=== PATIENT | female | born 1940 | race Caucasian/White ===

== ENCOUNTER 2017-12-31 01:32 | Observation (INO) | payer MEDICARE ==
[2017-12-31] MEDS ORDERED: ASPIRIN 81 MG TABLET, CHEWABLE PO ONE (02:50)
[2017-12-31 03:38] LABS: ABSOLUTE BASOPHILS # (AUTO) 0.1 10^3/uL (0.0-0.2); ABSOLUTE EOSINOPHILS # (AUTO) 0.3 10^3/uL (0.0-0.6); ABSOLUTE LYMPHOCYTES (AUTO) 1.2 10^3/uL (0.5-4.7); ABSOLUTE MONOCYTES (AUTO) 0.8 10^3/uL (0.1-1.4); ABSOLUTE NEUT (AUTO) 5.3 10^3/uL (1.7-8.2); BASOPHILS % (AUTO) 0.9 % (0-2); EOSINOPHILS % (AUTO) 3.7 % (0-6); HEMATOCRIT 42.4 % (36.0-47.0); HEMOGLOBIN 14.3 g/dL (12.0-15.5); LYMPHOCYTES % (AUTO) 15.8 % (13-45); MEAN CORPUSCULAR HEMOGLOBIN 32.6 pg (27.0-33.4); MEAN CORPUSCULAR HGB CONC 33.8 g/dL (32.0-36.0); MEAN CORPUSCULAR VOLUME 96 fl (80-97); MONOCYTES % (AUTO) 10.1 % (3-13); PLATELET COUNT 218 10^3/uL (150-450); RED CELL DISTRIBUTION WIDTH 13.2 % (11.5-14.0); SEGMENTED NEUTROPHILS % (AUTO) 69.5 % (42-78); TOTAL CELLS COUNTED % (AUTO) 100 %; WHITE BLOOD COUNT 7.6 10^3/uL (4.0-10.5)
[2017-12-31] MEDS ORDERED: NITROGLYCERIN 2% OINTMENT 1 GM PACKET TP ONE (03:38)
[2017-12-31 03:43] LABS: ALANINE AMINOTRANSFERASE 44 U/L (9-52); ALKALINE PHOSPHATASE 93 U/L (38-126); ANION GAP 10 (5-19); ASPARTATE AMINO TRANSFERASE 43 U/L (14-36); BILIRUBIN,DIRECT 0.2 mg/dL (0.0-0.4); BILIRUBIN,TOTAL 0.2 mg/dL (0.2-1.3); BLOOD UREA NITROGEN 35 mg/dL (7-20); CALCIUM 9.3 mg/dL (8.4-10.2); CARBON DIOXIDE 28 mmol/L (22-30); CHLORIDE 106 mmol/L (98-107); CREATINE KINASE 204 U/L (30-135); GLUCOSE 104 mg/dL (75-110); POTASSIUM 4.8 mmol/L (3.6-5.0); SODIUM 143.5 mmol/L (137-145); TOTAL PROTEIN 6.7 g/dL (6.3-8.2)
[2017-12-31 04:01] LABS: CREATINE KINASE MB 3.51 ng/mL (<4.55); TROPONIN I < 0.012 ng/mL
--- NOTE | 2017-12-31 04:39 | RADIOLOGY REPORT (SQ) ---
EXAM DESCRIPTION: XR CHEST 1 VIEW COMPLETED DATE/TME: 12/31/2017 02:50 CLINICAL HISTORY: cp COMPARISON: 02/27/2014 FINDINGS: Single frontal view of the chest. The cardiomediastinal silhouette has normal size and contour. No consolidation, pneumothorax, or pleural effusion. No displaced rib fractures identified. Leads overlie the chest. Upper abdominal soft tissues are unremarkable. IMPRESSION: 1. No acute pulmonary process identified.
[2017-12-31] MEDS ORDERED: METOCLOPRAMIDE HCL INJ/PF 10 MG/2 ML SDV IV PRN (05:30)
[2017-12-31] MEDS ORDERED: ACETAMINOPHEN 650 MG SUPP.RECT PR PRN (05:30)
--- NOTE | 2017-12-31 05:53 | PDOC H&P ---
History of Present Illness Admission Date/PCP: 12/31/2017 SERGO OVALLE MD Patient complains of: Chest pain History of Present Illness: RAMÓN PIERSON is a 77 year old female who woke up after midnight complaining of chest pressures in the suprasternal and right thoracic area, nonradiating, up to 8/10 in intensity, not associated with diaphoresis, nausea, vomiting, shortness of breath, dizziness, palpitations. Patient has history of coronary arterial disease with 6 stents placed in the past and tells me that this pain was similar to the ones she had at that time. She took one nitroglycerin at home and symptoms partially improved. She has had similar chest pressures on and off occasionally but nothing like this. She has normal exertional tolerance , denies lower extremities edema. 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 Mojica. In the emergency department she was found with new onset atrial fibrillation with a heart rate 115 which spontaneously converted to sinus rhythm. Also tells me that she has been a slightly short of breath when she do any activity for the last few weeks which is different to her baseline. Denies fever, chills, urinary symptoms, diarrhea or constipation. Her last stress test was 2 years ago. First set of troponins negative. Past Medical History Cardiac Medical History: Reports: Coronary Artery Disease - 6 [place] [facility] [place] [place] last stent on March [address] Mojica, Hyperlipidema, Hypertension Denies: Myocardial Infarction Pulmonary Medical History: Denies: Asthma, Bronchitis, Chronic Obstructive Pulmonary Disease (COPD), Pneumonia Neurological Medical History: Denies: Seizures GI Medical History: Reports: Hiatal Hernia Denies: Hepatitis Musculoskeltal Medical History: Reports: Arthritis Hematology: Denies: Anemia, Sickle Cell Disease Past Surgical History Past Surgical History: Reports: Appendectomy, Cardiac Catheterization - Several with a total of 6 stents placed, Cholecystectomy, Hysterectomy, Orthopedic Surgery - L ACL Bilateral carpal tunnel with ligament transfer on the right wrist, Tonsillectomy Denies: Amputation, Mastectomy, Pacemaker Social History Smoking Status: Former Smoker - Quit in 1971, used to smoke 2 packs per day Frequency of Alcohol Use: Occasional Hx Recreational Drug Use: No Family History Family History: Parents with history of myocardial infarction, uncle with history of myocardial infarction. Mother of leukemia and father of lung cancer. Parental Family History Reviewed: Yes - As above Children Family History Reviewed: NA Sibling(s) Family History Reviewed.: NA Medication/Allergy Home Medications: Benzonatate [Tessalon Perle 100 mg Capsule] 100 mg PO ASDIR PRN 11/26/14 Calcium Carbonate [Calcium] 200 unit PO DAILY 11/26/14 Cholecalciferol (Vitamin D3) [Vitamin D] 50,000 unit PO .QWEEKLY 11/26/14 Pravastatin Sodium 40 mg PO QHS 11/26/14 Ramipril [Altace] 5 mg PO DAILY 11/26/14 Vit C/E/Zn/Coppr/Lutein/Zeaxan [Preservision Areds 2 Softgel] 1 each PO BID 12/04 Aspirin [Aspirin 81 mg Chewable Tablet] 1 tab PO DAILY 12/24/14 Cyclosporine [Restasis Droperette] 1 each OU DAILY 05/29/15 Magnesium [Magnesium Gluconate] 250 mg PO DAILY 05/29/15 Metoprolol Tartrate [Lopressor] 50 mg PO DAILY 05/29/15 Ubidecarenone/Vitamin E Mixed [Coq10 Sg 100 Softgel] 1 each PO DAILY 05/29/15 Allergies/Adverse Reactions: codeine [Codeine] Allergy (Mild, Verified 12/31/17 03:43) Nausea propoxyphene [Propoxyphene] Allergy (Unknown, Verified 12/31/17 03:43) Hallucinations Review of Systems Review of Systems: As outlined in the HPI, all others negative Physical Exam Vital Signs: Temp Pulse Resp BP Pulse Ox 98.0 F 114 H 17 110/58 L 98 12/31/17 01:54 12/31/17 01:54 12/31/17 04:00 12/31/17 02:40 12/31/17 04:00 Intake & Output 12/29/17 12/30/17 12/31/17 06:59 06:59 06:59 Weight 76.4 kg Additional comments: General appearance: Well-developed, well-nourished, alert and cooperative, and appears to be in no acute distress Head: Normocephalic Eyes: PEERL, EOMI, vision is grossly intact. Ears: External auditory canal and tympanic membranes clear, hearing grossly intact. Nose: No nasal discharge. Throat: Oral cavity and pharynx normal. No inflammation, swelling, exudate or lesions. Neck: Neck supple, nontender without lymphadenopathy, masses or thyromegaly. Cardiac: Normal S1 and S2. No S3, S4 or murmurs. Rhythm is regular. There is no peripheral edema, cyanosis or pallor. Extremities are warm and well perfused. Capillary refill is less than 2 seconds. No carotid bruits. Lungs: Clear to auscultation and percussion without rales, rhonchi, wheezing or diminished breath sounds. Not using accessory muscles. Thorax: No tenderness to palpation Abdomen: Positive bowel sounds. Soft. Nondistended, nontender. No guarding or rebound. No masses. No hepatosplenomegaly Extremities: No significant deformity or joint abnormality. No edema. Peripheral pulses intact. No varicosities. Neurological: Cranial nerves II through XII grossly intact. Strength and sensation symmetric and intact throughout. Reflexes 2+ throughout. Skin: Skin normal color, texture and turgor with no lesions or eruptions, warm and dry. Psychiatric: The mental examination revealed the patient was oriented to person , place, and time. The patient was able to demonstrate good judgment on recent , without hallucinations, abnormal affect or abnormal behaviors. Results Laboratory Results: 12/31/17 02:50 12/31/17 02:50 12/31/17 12/31/17 02:50 02:50 WBC 7.6 RBC 4.40 Hgb 14.3 Hct 42.4 MCV 96 MCH 32.6 MCHC 33.8 RDW 13.2 Plt Count 218 Seg Neutrophils % 69.5 Lymphocytes % 15.8 Monocytes % 10.1 Eosinophils % 3.7 Basophils % 0.9 Absolute Neutrophils 5.3 Absolute Lymphocytes 1.2 Absolute Monocytes 0.8 Absolute Eosinophils 0.3 Absolute Basophils 0.1 Sodium 143.5 Potassium 4.8 Chloride 106 Carbon Dioxide 28 Anion Gap 10 BUN 35 H Creatinine 1.04 Est GFR ( Amer) > 60 Est GFR (Non-Af Amer) 51 L Glucose 104 Calcium 9.3 Total Bilirubin 0.2 AST 43 H ALT 44 Alkaline Phosphatase 93 Total Protein 6.7 Albumin 4.0 12/31/17 12/31/17 02:50 02:50 Creatine Kinase 204 H CK-MB (CK-2) 3.51 Troponin I < 0.012 Impressions: Chest X-Ray 12/31/17 02:50 IMPRESSION: 1. No acute pulmonary process identified. Assessment & Plan - Diagnosis (1) Chest pain Qualifiers: Chest pain type: unspecified Qualified Code(s): R07.9 - Chest pain, unspecified Is this a current diagnosis for this admission?: Yes Plan: Patient with history of coronary arterial disease and 6 stents placed in the past comes with chest pressure, similar to when she had had a stents placed. Last stress test 2 years ago. By the time I went to see her she was chest pain- free that apparently improved after one sublingual nitroglycerin. We will give the patient under telemetry monitoring, place an order for a stress test. Sublingual nitroglycerin as needed. Complete cardiac markers 3. Oxygen protocol if necessary. (2) New onset atrial fibrillation Is this a current diagnosis for this admission?: Yes Plan: Patient came with new onset atrial fibrillation, heart rate 115, he spontaneously returned to sinus rhythm. TSH sent. Patient asymptomatic. Unclear if these events are the one given her chest pressures on and off. I am placing cardiology consultation with Dr. Brito for evaluation and further recommendations, we appreciate your expertise. No further intervention done. (3) Coronary artery disease Qualifiers: Associated angina: without angina Is this a current diagnosis for this admission?: Yes Plan: Had 6 stents placed at [facility] by Dr. Mojica, last March 2012. For a stress test. Continue home medications. (4) Hypertension Qualifiers: Hypertension type: unspecified Qualified Code(s): I10 - Essential (primary ) hypertension Is this a current diagnosis for this admission?: Yes Plan: Blood pressure well controlled, continue with home antihypertensive medications - Time Time Spent: 30 to 50 Minutes
--- NOTE | 2017-12-31 06:23 | ER Document Report ---
ED General - General Chief Complaint: Chest Pain Stated Complaint: CHEST PAIN Time Seen by Provider: 12/31/17 02:49 TRAVEL OUTSIDE OF THE [place] IN LAST 30 DAYS: No - HPI Patient complains to provider of: Chest pain Notes: Patient here for evaluation of chest pain. Patient states chest pain started in the middle the night working her up from her sleep that was relieved by her own nitro. Patient states she has a history of 6 stents with the last one being placed in 2005. Patient also states last stress test was approximately 1- 2 years ago. Patient otherwise states no nausea no vomiting no fevers no chills no recent trauma. Patient resting comfortably upon my evaluation states substernal chest pain now at approximately 1. States pain is achy in nature. Says last time the patient had pain was when she had her last stent placed. - Related Data Allergies/Adverse Reactions: codeine [Codeine] Allergy (Mild, Verified 12/31/17 03:43) Nausea propoxyphene [Propoxyphene] Allergy (Unknown, Verified 12/31/17 03:43) Hallucinations Past Medical History - Social History Smoking Status: Former Smoker - Quit in 1971, used to smoke 2 packs per day Family History: Reviewed & Not Pertinent Patient has suicidal ideation: No Patient has homicidal ideation: No - Past Medical History Cardiac Medical History: Reports: Hx Coronary Artery Disease - 6 stents placed in [facility], last stent on March [address] Mojica, Hx Hypercholesterolemia , Hx Hypertension Denies: Hx Heart Attack Pulmonary Medical History: Denies: Hx Asthma, Hx Bronchitis, Hx COPD, Hx Pneumonia Neurological Medical History: Denies: Hx Cerebrovascular Accident, Hx Seizures Renal/ Medical History: Denies: Hx Peritoneal Dialysis GI Medical History: Reports: Hx Hiatal Hernia, Hx Ulcer. Denies: Hx Hepatitis Musculoskeletal Medical History: Reports Hx Arthritis Infectious Medical History: Denies: Hx Hepatitis Past Surgical History: Reports: Hx Appendectomy, Hx Cardiac Catheterization - Several with a total of 6 stents placed, Hx Cholecystectomy, Hx Hysterectomy, Hx Orthopedic Surgery - L ACL Bilateral carpal tunnel with ligament transfer on the right wrist, Hx Tonsillectomy. Denies: Hx Mastectomy, Hx Open Heart Surgery , Hx Pacemaker - Immunizations Hx Diphtheria, Pertussis, Tetanus Vaccination: Yes Hx Pneumococcal Vaccination: 05/23/12 Review of Systems - Review of Systems Constitutional: No symptoms reported EENT: No symptoms reported Cardiovascular: Chest pain Respiratory: No symptoms reported Gastrointestinal: No symptoms reported Genitourinary: No symptoms reported Female Genitourinary: No symptoms reported Musculoskeletal: No symptoms reported Skin: No symptoms reported Hematologic/Lymphatic: No symptoms reported Neurological/Psychological: No symptoms reported -: Yes All other systems reviewed and negative Physical Exam - Vital signs Vitals: Temp Pulse BP Pulse Ox 98.0 F 114 H 121/77 96 12/31/17 01:54 12/31/17 01:54 12/31/17 01:54 12/31/17 01:54 Interpretation: Normal - General General appearance: Appears well, Alert - HEENT Head: Normocephalic, Atraumatic Eyes: Normal Pupils: PERRL - Respiratory Respiratory status: No respiratory distress Chest status: Nontender Breath sounds: Normal Chest palpation: Normal - Cardiovascular Rhythm: Irregularly irregular, Tachycardia Heart sounds: Normal auscultation Murmur: No - Abdominal Inspection: Normal Distension: No distension Bowel sounds: Normal Tenderness: Nontender Organomegaly: No organomegaly - Back Back: Normal, Nontender - Extremities General upper extremity: Normal inspection, Nontender, Normal color, Normal ROM , Normal temperature General lower extremity: Normal inspection, Nontender, Normal color, Normal ROM , Normal temperature, Normal weight bearing. No: Jim's sign - Neurological Neuro grossly intact: Yes Cognition: Normal Orientation: AAOx4 [place] Coma Scale Eye Opening: Spontaneous Ran Coma Scale Verbal: Oriented [place] Coma Scale Motor: Obeys Commands [place] Coma Scale Total: 15 Speech: Normal Motor strength normal: LUE, RUE, LLE, RLE Sensory: Normal - Psychological Associated symptoms: Normal affect, Normal mood - Skin Skin Temperature: Warm Skin Moisture: Dry Skin Color: Normal Course - Re-evaluation Re-evalutation: 12/31/17 06:22 Chest pain of unclear etiology, evaluation for cardiac ischemia is indicated. Initial cardiac markers and EKG nondiagnostic. ASA given. Based upon the presentation the patient appears to be at low risk for other serious causes of chest pain. Plan to admit to complete cardiac evaluation and observation. EKG showed new onset A. fib however this is rate controlled. Patient denies a history of atrial fibrillation. Troponins otherwise negative patient will be admitted for further evaluation by the hospitalist service. - Vital Signs Vital signs: Temp Pulse Resp BP Pulse Ox 98.0 F 114 H 17 110/58 L 96 12/31/17 01:54 12/31/17 01:54 12/31/17 05:00 12/31/17 02:40 12/31/17 05:00 - Laboratory Result Diagrams: 12/31/17 02:50 12/31/17 02:50 Laboratory results interpreted by me: 12/31/17 02:50 BUN 35 H Est GFR (Non-Af Amer) 51 L AST 43 H Creatine Kinase 204 H Discharge - Discharge Clinical Impression: New onset atrial fibrillation Hypertension Qualifiers: Hypertension type: unspecified Qualified Code(s): I10 - Essential (primary) hypertension Chest pain Qualifiers: Chest pain type: unspecified Qualified Code(s): R07.9 - Chest pain, unspecified Coronary artery disease Qualifiers: Associated angina: without angina Condition: Good Disposition: ADMITTED OBSERVATION Admitting Provider: Hospitalist - [facility] Admitted: Telemetry Referrals: SERGO OVALLE MD [Primary Care Provider] - Follow up as needed
[2017-12-31] MEDS: ENOXAPARIN SODIUM INJ 40 MG/0.4 ML DISP.SYRIN SUBCUT SCH (10:31)
--- NOTE | 2017-12-31 12:20 | EKG REPORT ---
SEVERITY:- ABNORMAL ECG - ATRIAL FIBRILLATION : Confirmed by: Ana Maria Browne MD 31-Dec-2017 12:19:46
--- NOTE | 2017-12-31 13:42 | Progress Note ---
Provider Note Provider Note: ADDENDUM TO CONSULTATION by Dr. Ana Maria Browne on 12/31/2017: FAMILY HISTORY: The patient's parents, and uncle had myocardial infarction. Father of lung cancer, and mother of leukemia.
[2017-12-31] MEDS: RAMIPRIL 5 MG CAPSULE PO SCH (13:52)
[2017-12-31] MEDS ORDERED: METOPROLOL TARTRATE 50 MG TABLET PO SCH ×2 (18:00)
--- NOTE | 2017-12-31 21:11 | EKG REPORT ---
SEVERITY:- NORMAL ECG - SINUS RHYTHM : Confirmed by: Ana Maria Browne MD 31-Dec-2017 21:09:42
[2017-12-31] MEDS ORDERED: ATORVASTATIN CALCIUM 10 MG TABLET PO SCH (22:00)
[2017-12-31] MEDS ORDERED: (PENDING PHARMACY ID) (Pravastatin Sodium [Pravastatin Sodium] 20 MG) PO SCH (22:00)
[2018-01-01] MEDS ORDERED: ASPIRIN 81 MG TABLET, ENT COATED PO SCH (10:00)
[2018-01-01] MEDS: RAMIPRIL 5 MG CAPSULE PO SCH (10:53)
[2018-01-01] MEDS: ENOXAPARIN SODIUM INJ 40 MG/0.4 ML DISP.SYRIN SUBCUT SCH (10:54)
[2018-01-01] MEDS ORDERED: REGADENOSON INJ 0.4 MG/5 ML DISP.SYRIN IV ONE (11:48)
[2018-01-01 15:03] VITALS: BP 111/62
--- NOTE | 2018-01-01 17:31 | EKG REPORT ---
SEVERITY:- DEFECTIVE ECG - SINUS RHYTHM WITH BASELINE ARTIFACT.PROBABLY NORMAL EKG,REPEAT EKG. : Confirmed by: Ana Maria Browne MD 01-Jan-2018 17:31:15
--- NOTE | 2018-01-01 21:15 | DRAGON STRESS TEST REPORT ---
Intravenous Lexiscan Cardiolite stress test using single photon emmision computerized tomography. Date of procedure: 01/01/2018. Ordering Provider: Dr. Ana Maria Browne. Patient's status: In Patient. Primary Care Physician: Dr. Dial. Indication: Chest pain in a patient with history of coronary artery disease, and ,multiple stents. And one episode of paroxysmal atrial fibrillation. Coronary risk factors: Age, hypertension, hyperlipidemia, and family history of coronary artery disease. Resting EKG: Sinus Rhythm. Within Normal Limits. Stress EKG: No changes of ischemia. The patient had no chest pain or discomfort, and there were no arrhythmias seen. Reason for termination: Protocol. Conclusions: Normal EKG and hemodynamic response to IV Lexiscan. Nuclear data: At rest the patient was given 11.81 millicuries of technetium 99m sestamibi injected intravenously. As per protocol rest non gated SPECT images were obtained. Subsequently the patient was given intravenous Lexiscan at a dose of 0.4 mg in 5 mL intravenously, followed by flush with normal saline. Subsequently the stress dose of 34.8 millicuries of technetium 99m sestamibi was injected intravenously. As per protocol stress gated images were obtained. Nuclear interpretation: Review of images showed that all segments of the myocardium had normal perfusion at rest, and normal perfusion post stress with IV Lexiscan. All segments of the myocardium had normal motion, contraction, and thickening by gated study. T. I D. ratio was normal at 1.14. Computer read rest, and stress left ventricular ejection fraction were 63 %, and 62 %, respectively. Conclusion: 1. There is no scintigraphic evidence of Lexiscan induced myocardial ischemia. 2. There is no scintigraphic evidence of myocardial infarction/scar. Recommendations: Aggressive risk factor modification, and treating the underlying co- morbidities. MTDD
--- NOTE | 2018-01-02 08:45 | PROGRESS NOTE E ---
Progress Note NAME: RAMÓN PIERSON : 1940 AGE: 77Y DATE: 01/01/2018 ROOM: 330 SUBJECTIVE: Note, patient has had no further episodes of atrial fibrillation. She denies any chest pain or discomfort. There is no shortness of breath. There is no PND or orthopnea. There is no leg edema. There is no TIA or CVA symptoms. There is no ventricular arrhythmia seen. There is no atrial arrhythmia seen on the monitor. Patient underwent an uneventful IV Lexiscan Cardiolite stress test this morning. PHYSICAL EXAMINATION: GENERAL: Patient is mildly obese but well nourished, in no acute distress, and she is well groomed. She appears younger than her stated age. VITAL SIGNS: She is afebrile with a temperature of 98.3 degrees Fahrenheit. Pulse is 60 beats per minute, regular sinus rhythm. Blood pressure is 111/62. Respirations are 18 per minute. O2 sats are 98% on room air. HEENT: Head is atraumatic, normocephalic. Eyes - Pupils are equal, round, regular, reactive to light and accommodation. Extraocular movements are normal. There is no conjunctival pallor. There is no scleral icterus. ENT is negative. NECK: Supple. There is no JVD. Carotids are equal. There is no bruit. There is no lymphadenopathy. There is no goiter. Trachea is central. LUNGS: Clear to auscultation and percussion. There is no chest wall tenderness. HEART: S1, S2 is heard. There is no S3 gallop. There is no S4 gallop. S1 is of normal intensity. There is a systolic murmur at the left sternal border and the apex. There is no rub. ABDOMEN: Soft, nontender. There is no hepatosplenomegaly. Bowel sounds are well heard. There are no tender areas or masses. There is no rebound, guarding, or rigidity. EXTREMITIES: Femorals are well felt. There are no femoral bruits. Leg pulses are well felt. There is no pedal edema. There is no DVT or cellulitis. There is no cyanosis or clubbing. There is no calf tenderness. CENTRAL NERVOUS SYSTEM: The patient is conscious, awake, alert, oriented x3 with no focal deficits. PSYCHIATRIC: The patient's judgement and insight are intact. Her affect is normal. DIAGNOSTICS: Note, the patient's magnesium is 2.2 and within normal limits. Patient underwent a Lexiscan Cardiolite stress test this morning. This showed no reversible ischemia and there was no evidence of myocardial infarction/scar. LV ejection fraction was normal. IMPRESSION/PLAN: 1. CHEST PAIN. No EKG changes, negative biomarkers of [place], and negative stress test. Most likely noncardiac chest pain. 2. CORONARY ARTERY DISEASE WITH HISTORY OF MULTIPLE STENTS. Still records are not available from [facility]. 3. FIRST EPISODE OF PAROXYSMAL ATRIAL FIBRILLATION WITH NO RECURRENCE. Would recommend that we get the patient a 30-day event monitor at home to see if there is any recurrence of atrial fibrillation, in which case the patient may be a candidate for cardiac catheterization. At present, along with the beta mariel, we will continue the patient on aspirin 325 mg p.o. daily. 4. HYPERTENSION, WELL CONTROLLED. Continue current medication. 5. HYPERLIPIDEMIA. Continue statin. 6. MILD PRERENAL AZOTEMIA. We will push fluids. We will recheck patient's [facility] as an outpatient. 7. SYSTOLIC MURMUR. We will recommend outpatient echocardiogram to assess valvular disease and for any left ventricular or right ventricular abnormalities. Note, 40 minutes were spent on this patient with more than 50% of the time spent on direct patient care. The findings of the stress test were discussed with the patient. Patient is anxious to go home. She will follow up with me as an outpatient. My appointment card and cell number were given to the patient. Patient has chosen me after I have given her a choice. She will also follow up with Dr. Israel periodically as needed at [place]. I discussed this with the hospitalist. DICTATING PHYSICIAN: FERCHO LAYTON M.D. [id number] PHY#: [id number] ID: [id number] JOB#: [id number] ACCT: [id number] cc: >
--- NOTE | 2018-01-09 21:53 | PDOC DISCHARGE SUMMARY ---
General - Admit/Disc Date/PCP Admission Date/Primary Care Provider: 12/31/17 05:53 SERGO OVALLE MD Discharge Date: 01/01/18 - Discharge Diagnosis (1) Chest pain Is this a current diagnosis for this admission?: Yes - Additional Information Discharge Diet: Cardiac Discharge Activity: Activity As Tolerated Home Medications: Benzonatate [Tessalon Perle 100 mg Capsule] 100 mg PO DAILY 11/26/14 Cholecalciferol (Vitamin D3) [Vitamin D] 50,000 unit PO TU@1000 11/26/14 Pravastatin Sodium 20 mg PO QHS 11/26/14 Ramipril [Altace] 5 mg PO DAILY 11/26/14 Vit C/E/Zn/Coppr/Lutein/Zeaxan [Preservision Areds 2 Softgel] 1 each PO BID 12/04 Metoprolol Tartrate [Lopressor] 50 mg PO QPM 05/29/15 Ubidecarenone/Vitamin E Mixed [Coq10 Sg 100 Softgel] 1 each PO QPM 05/29/15 Aspirin [Aspirin EC] 81 mg PO DAILY 12/31/17 Calcium Carbonate [Os-Francis 500 mg Tablet (Oyster-Shell)] 200 mg PO DAILY History of Present Illness History of Present Illness: Per Dr. Jovon Fox: RAMÓN PIERSON is a 77 year old female who woke up after midnight complaining of chest pressures in the suprasternal and right thoracic area, nonradiating, up to 8/10 in intensity, not associated with diaphoresis, nausea, vomiting, shortness of breath, dizziness, palpitations. Patient has history of coronary arterial disease with 6 stents placed in the past and tells me that this pain was similar to the ones she had at that time. She took one nitroglycerin at home and symptoms partially improved. She has had similar chest pressures on and off occasionally but nothing like this. She has normal exertional tolerance, denies lower extremities edema. Her water and gas helper is Dr. Mojica. In the emergency department she was found with new onset atrial fibrillation with a heart rate 115 which spontaneously converted to sinus rhythm. Also tells me that she has been a slightly short of breath when she do any activity for the last few weeks which is different to her baseline. Denies fever, chills, urinary symptoms, diarrhea or constipation. Her last stress test was 2 years ago. First set of troponins negative. Hospital Course Hospital Course: 77 y.o. F who presented to [facility] for chest and upper back pain. The patient has an extensive cardiac history, including CAD with multiple stents. Her water and gas helper is Dr. Mojica at [facility]. Initial EKG demonstrated rapid AFIB, but the episode was self limiting. The patient converted to NSR while in the ED without intervention. Of note, the patient denies a history of AFIB in the past. Serial cardiac enzymes were normal. The patient denied chest pain during hospitalist assessment, she only endorsed upper thorasic pain likely due to recent physical activity or ' sleeping in the wrong position.' Cardiology was consulted and a Cardiolite Stress Test was preformed by Dr. Brito. The results of the stress test were normal. Follow up EKGs were all normal. The patient was instructed to closely follow up with an outpatient water and gas helper because she would likely need to wear a 30 day event monitor to evaluate for reoccurrence of her AFIB. The patient was advised to begin taking a full dose (325mg) aspirin daily until directed otherwise. After less than 24 hours in the hospital, the patient was deemed safe for discharge. The patient stated understanding of her discharge instructions. Other than increasing her Aspirin dose, no other changes were made to her medication regimen. For further information regarding the patient's hospitalization, please refer to the EMR. Physical Exam Vital Signs: Temp Pulse Resp BP Pulse Ox 98.3 F 60 18 111/62 98 01/01/18 15:02 01/01/18 15:02 01/01/18 15:02 01/01/18 15:02 01/01/18 15:02 Results Laboratory Results: 12/31/17 12/31/17 12/31/17 08:42 15:25 21:15 Troponin I 0.022 0.015 0.012 Impressions: Chest X-Ray 12/31/17 02:50 IMPRESSION: 1. No acute pulmonary process identified. Status: Imported from PACS Qualifiers - * PATIENT BEING DISCHARGED WITH ANY OF THE FOLLOWING DIAGNOSIS: No Plan Discharge Plan: DISCHARGE HOME. FOLLOW UP WITH SCHOOL SERVICES OFFICER. BEGIN TAKING 325MG ASPIRIN DAILY. Time Spent: Less than 30 Minutes
== END 2018-01-01 15:42 | disposition home or self-care (01) ==
LOC: ER 01:32 → EH 05:53 → 3S 08:36
PROVIDERS: ADMIT Internal Medicine; ATTEND Internal Medicine
DX: R07.89 Other chest pain (principal); M54.6 Pain in thoracic spine; I25.10 Atherosclerotic heart disease of native coronary artery without angina pectoris; R06.02 Shortness of breath; I10 Essential (primary) hypertension; I48.0 Paroxysmal atrial fibrillation; E66.9 Obesity, unspecified; Z68.30 Body mass index [BMI] 30.0-30.9, adult; E78.5 Hyperlipidemia, unspecified; R79.89 Other specified abnormal findings of blood chemistry; R01.1 Cardiac murmur, unspecified; Z95.5 Presence of coronary angioplasty implant and graft; Z79.899 Other long term (current) drug therapy; Z79.82 Long term (current) use of aspirin; Z90.49 Acquired absence of other specified parts of digestive tract; Z87.891 Personal history of nicotine dependence; Z82.49 Family history of ischemic heart disease and other diseases of the circulatory system; Z80.1 Family history of malignant neoplasm of trachea, bronchus and lung; Z80.6 Family history of leukemia; Z87.11 Personal history of peptic ulcer disease
CPT/HCPCS: 93005 ×2; 99285; 36415 ×2; 82553; 82550; 83735; 85025; 80053; 84484; 93017; 71045; 78452; 93010; G0378 ×3; A9500; J2785; A9270 ×5; J1650; J3490; Q9969

== ENCOUNTER → 2019-03-29 | Outpatient (CLI) | payer MEDICARE ==
[2019-03-29 08:29] LABS: ABSOLUTE EOSINOPHILS # (AUTO) 0.3 10^3/uL (0.0-0.6); ABSOLUTE LYMPHOCYTES (AUTO) 0.9 10^3/uL (0.5-4.7); ABSOLUTE MONOCYTES (AUTO) 0.7 10^3/uL (0.1-1.4); ABSOLUTE NEUT (AUTO) 5.9 10^3/uL (1.7-8.2); BASOPHILS % (AUTO) 0.6 % (0-2); EOSINOPHILS % (AUTO) 3.9 % (0-6); HEMATOCRIT 43.7 % (36.0-47.0); HEMOGLOBIN 14.8 g/dL (12.0-15.5); LYMPHOCYTES % (AUTO) 11.8 % (13-45); MEAN CORPUSCULAR HEMOGLOBIN 32.3 pg (27.0-33.4); MEAN CORPUSCULAR VOLUME 95 fl (80-97); MONOCYTES % (AUTO) 8.5 % (3-13); PLATELET COUNT 229 10^3/uL (150-450); SEGMENTED NEUTROPHILS % (AUTO) 75.2 % (42-78); TOTAL CELLS COUNTED % (AUTO) 100 %; WHITE BLOOD COUNT 7.8 10^3/uL (4.0-10.5)
[2019-03-29 08:45] LABS: ALBUMIN 4.3 g/dL (3.5-5.0); ALKALINE PHOSPHATASE 80 U/L (38-126); ANION GAP 8 (5-19); ASPARTATE AMINO TRANSFERASE 43 U/L (14-36); BILIRUBIN,DIRECT 0.1 mg/dL (0.0-0.4); BILIRUBIN,TOTAL 0.6 mg/dL (0.2-1.3); BLOOD UREA NITROGEN 29 mg/dL (7-20); CALCIUM 9.9 mg/dL (8.4-10.2); CARBON DIOXIDE 30 mmol/L (22-30); CHLORIDE 101 mmol/L (98-107); CHOLESTEROL 168.18 mg/dL (0-200); GLUCOSE 89 mg/dL (75-110); POTASSIUM 4.6 mmol/L (3.6-5.0); TOTAL PROTEIN 7.3 g/dL (6.3-8.2); TRIGLYCERIDES 86 mg/dL (<150)
[2019-03-29 08:56] LABS: DIRECT LDL 85 mg/dL (<100)
== END ==
LOC: OD 07:37
PROVIDERS: ATTEND Internal Medicine
DX: I25.10 Atherosclerotic heart disease of native coronary artery without angina pectoris (principal); I10 Essential (primary) hypertension; E78.5 Hyperlipidemia, unspecified; R53.83 Other fatigue; R30.0 Dysuria
CPT/HCPCS: 36415; 80053; 80061; 83735; 84443; 85025; 87086; 87088; 87186

== ENCOUNTER → 2020-06-18 | Outpatient (CLI) | payer MEDICARE ==
[2020-06-18 11:12] LABS: ABSOLUTE BASOPHILS # (AUTO) 0.1 10^3/uL (0.0-0.2); ABSOLUTE EOSINOPHILS # (AUTO) 0.4 10^3/uL (0.0-0.6); ABSOLUTE LYMPHOCYTES (AUTO) 0.9 10^3/uL (0.5-4.7); ABSOLUTE MONOCYTES (AUTO) 0.7 10^3/uL (0.1-1.4); ABSOLUTE NEUT (AUTO) 4.6 10^3/uL (1.7-8.2); BASOPHILS % (AUTO) 1.2 % (0-2); EOSINOPHILS % (AUTO) 5.3 % (0-6); HEMATOCRIT 42.7 % (36.0-47.0); HEMOGLOBIN 14.1 g/dL (12.0-15.5); LYMPHOCYTES % (AUTO) 13.9 % (13-45); MEAN CORPUSCULAR HEMOGLOBIN 31.7 pg (27.0-33.4); MEAN CORPUSCULAR HGB CONC 33.2 g/dL (32.0-36.0); MEAN CORPUSCULAR VOLUME 96 fl (80-97); MONOCYTES % (AUTO) 10.8 % (3-13); PLATELET COUNT 228 10^3/uL (150-450); RED BLOOD COUNT 4.46 10^6/uL (3.72-5.28); RED CELL DISTRIBUTION WIDTH 13.5 % (11.5-14.0); SEGMENTED NEUTROPHILS % (AUTO) 68.8 % (42-78); TOTAL CELLS COUNTED % (AUTO) 100 %; WHITE BLOOD COUNT 6.7 10^3/uL (4.0-10.5)
[2020-06-18 11:48] LABS: ALBUMIN 4.2 g/dL (3.5-5.0); ALKALINE PHOSPHATASE 75 U/L (38-126); ANION GAP 9 (5-19); ASPARTATE AMINO TRANSFERASE 42 U/L (14-36); BILIRUBIN,DIRECT 0.2 mg/dL (0.0-0.4); BILIRUBIN,TOTAL 0.5 mg/dL (0.2-1.3); BLOOD UREA NITROGEN 24 mg/dL (7-20); CALCIUM 9.2 mg/dL (8.4-10.2); CARBON DIOXIDE 29 mmol/L (22-30); CHLORIDE 102 mmol/L (98-107); CHOLESTEROL 161.95 mg/dL (0-200); GLUCOSE 98 mg/dL (75-110); POTASSIUM 4.4 mmol/L (3.6-5.0); TRIGLYCERIDES 135 mg/dL (<150); URIC ACID 5.3 mg/dL (2.5-7.5)
[2020-06-18 11:59] LABS: DIRECT LDL 66 mg/dL (<100)
== END ==
LOC: OD 09:57
PROVIDERS: ATTEND Internal Medicine
DX: I25.10 Atherosclerotic heart disease of native coronary artery without angina pectoris (principal); I10 Essential (primary) hypertension; E78.5 Hyperlipidemia, unspecified; R53.83 Other fatigue; M10.9 Gout, unspecified
CPT/HCPCS: 36415; 80053; 80061; 84443; 84550; 85025